=== PATIENT | male | born 1980 | race American Indian/Alaskan Native ===

== ENCOUNTER 2018-05-24 07:44 | Inpatient (IN) | payer SELFPAY ==
[2018-05-24] MEDS ORDERED: NACL 0.9% 1000 ML 1,000 ML IV ONE ×2 (07:48→11:02)
[2018-05-24] MEDS ORDERED: ZOFRAN IV ONE (07:59)
[2018-05-24] MEDS ORDERED: DILAUDID IV ONE ×3 (07:59→09:52)
--- NOTE | 2018-05-24 08:00 | Emergency Department Report ---
ED Abdominal Pain HPI - General Chief Complaint: Abdominal Pain Stated Complaint: ABD PAIN Time Seen by Provider: 05/24/18 07:58 Source: family, EMS Mode of arrival: Stretcher Limitations: No Limitations - History of Present Illness Initial Comments: Patient is a 37-year-old male presents emergency room with complaints of abdominal pain and vomiting blood. Patient states symptoms started yesterday and have been going on for about 24 hours. Patient states his symptoms are worsening. Patient states abdominal pain is 10 out of 10. Patient states the abdominal pain is in the epigastric region and nonradiating. Patient states that the pain is better with rest and worse with eating and movement and palpation. Patient states she's been vomiting bright red blood. Patient states he has vomited approximately 10 times in the last 24 hours CONTAINING blood. Patient denies fever chills. Patient denies chest pain shortness of breath. Patient denies diarrhea. Patient denies dark or bright red blood in the stool. MD Complaint: abdominal pain -: Sudden Location: epigastric Radiation: none Migration to: no migration Severity: severe Severity scale (0 -10): 10 Quality: stabbing Consistency: constant Improves With: rest Worsens With: eating, vomiting, movement Associated Symptoms: nausea, vomiting, hematemesis. denies: diarrhea, fever, chills, constipation, dysuria, hematochezia, melena, hematuria, anorexia, syncope Treatments Prior to Arrival: antacids - Related Data Allergies Allergy/AdvReac Type Severity Reaction Status Date / Time No Known Allergies Allergy Verified 05/24/18 08:04 ED Review of Systems ROS: Stated complaint: ABD PAIN Other details as noted in HPI Constitutional: denies: chills, fever Eyes: denies: eye pain, eye discharge, vision change ENT: denies: ear pain, throat pain Respiratory: denies: cough, shortness of breath, wheezing Cardiovascular: denies: chest pain, palpitations Endocrine: no symptoms reported Gastrointestinal: abdominal pain, nausea, vomiting, hematemesis. denies: diarrhea, constipation, melena, hematochezia Genitourinary: denies: urgency, dysuria Musculoskeletal: denies: back pain, joint swelling, arthralgia Skin: denies: rash, lesions Neurological: denies: headache, weakness, paresthesias Psychiatric: denies: anxiety, depression Hematological/Lymphatic: denies: easy bleeding, easy bruising ED Past Medical Hx - Past Medical History Previous Medical History?: Yes Additional medical history: stomach ulcer - Surgical History Past Surgical History?: No - Family History Family history: no significant - Social History Smoking Status: Current Every Day Smoker Substance Use Type: None ED Physical Exam - General Limitations: No Limitations General appearance: alert, in no apparent distress - Head Head exam: Present: atraumatic, normocephalic - Eye Eye exam: Present: normal appearance - ENT ENT exam: Present: mucous membranes moist - Neck Neck exam: Present: normal inspection - Respiratory Respiratory exam: Present: normal lung sounds bilaterally. Absent: respiratory distress - Cardiovascular Cardiovascular Exam: Present: regular rate, normal rhythm. Absent: systolic murmur, diastolic murmur, rubs, gallop - GI/Abdominal GI/Abdominal exam: Present: soft, tenderness (generalized tenderness to palpation), normal bowel sounds - Rectal Rectal exam: Present: deferred - Extremities Exam Extremities exam: Present: normal inspection - Back Exam Back exam: Present: normal inspection - Neurological Exam Neurological exam: Present: alert, oriented X3 - Psychiatric Psychiatric exam: Present: normal affect, normal mood - Skin Skin exam: Present: warm, dry, intact, normal color. Absent: rash ED Course Vital Signs 05/24/18 05/24/18 05/24/18 07:45 07:47 08:07 Temperature 99.3 F Pulse Rate 83 Respiratory 16 16 Rate Blood Pressure 170/90 Blood Pressure 147/126 [Left] O2 Sat by Pulse 98 99 99 Oximetry 05/24/18 08:31 Temperature Pulse Rate 87 Respiratory 19 Rate Blood Pressure Blood Pressure 138/67 [Left] O2 Sat by Pulse 99 Oximetry - Reevaluation(s) Reevaluation #1: Patient given Dilaudid and still complaining of severe pain. Patient was given another milligram of Dilaudid 05/24/18 08:16 She still complaining of pain. Patient will be given another 1 mg Dilaudid. Patient is not able to tolerate oral contrast due to nausea vomiting. 05/24/18 09:52 Discussed all results with patient. Patient admitted to the hospitalist service. Patient agrees with plan of care. Patient has required multiple doses of pain meds. We'll consult GI due to vomiting blood. 05/24/18 10:52 - Consultations Consultation #1: GI consultation and GI states they will see the patient now. 05/24/18 10:59 Consultation #2: Hospitalist consult for admission. Hospitalist to admit patient and assume care of patient. 05/24/18 11:09 ED Medical Decision Making - Lab Data Result diagrams: 05/24/18 07:52 05/24/18 07:52 - Radiology Data Radiology results: report reviewed CT ABDOMEN AND PELVIS WITH CONTRAST INDICATION: Abdominal pain, vomiting blood. COMPARISON: None similar at this institution. FINDINGS: Abdomen and pelvis CT performed following oral contrast and intravenous administration of 100 cc of Omnipaque 300. LUNG BASES: Nonspecific distal esophageal wall prominence/thickening, not excluded for gastroesophageal reflux and/or hiatal hernia, amongst others. ABDOMEN: Liver, spleen, gallbladder, pancreas, right adrenal, IVC and aorta within normal limits. Right hepatic lobe 17 cm in mid clavicular length. Approximately 0.8 cm hypodense nodular prominence along the medial limb of the left adrenal, axial series 2, image 35, statistically an adenoma. Few subcentimeter mesenteric and retroperitoneal lymph nodes. No ascites. Opacified GI tract nonobstructive. Normal retrocecal appendix with its tip extending between the liver and the right kidney toward the Cotter's pouch as on axial image 60, amongst others. Kidneys nonhydronephrotic bilaterally, though evaluation for few nonobstructing calculi, if present, limited due to presence of contrast. A 0.8 cm left lower renal cortical hypodensity/cyst as on axial image 72. PELVIS: Grossly unremarkable urinary bladder, seminal vesicles, prostate and rectosigmoid. No free fluid or significant adenopathy. Few Schmorl's nodes along L4 inferior endplate measuring up to approximately 1 cm. Slight L1 inferior endplate degenerative irregularity posteriorly as well. A 1.2 cm right iliac bone sclerotic focus posteriorly is nonspecific as on axial image 127, series 2. CONCLUSION: No definite acute significant CT abnormality or bowel obstruction with various other findings as distal esophageal prominence/thickening, left adrenal nodule, possible nephrolithiasis versus contrast excretion and a long, normal retrocecal appendix, amongst others, as detailed above. Please correlate. - Medical Decision Making Patient is a 37-year-old male presents to emergency room with complaints of vomiting blood and abdominal pain. Patient's labs unremarkable except for incidental left gassy doses which on repeat came back to normal. Patient given multiple doses of pain medications. Patient admitted to the hospitalist service for further evaluation and treatment. Patient be admitted for intractable abdominal pain and nausea. GI consult for further evaluation and treatment. Patient agreeable to plan of care. - Differential Diagnosis abdominal pain. GI bleed. PUD. Critical Care Time: Yes Critical care attestation.: If time is entered above; I have spent that time in minutes in the direct care of this critically ill patient, excluding procedure time. Critical Care Time: 55 minutes ED Disposition Clinical Impression: Intractable abdominal pain Vomiting blood Qualifiers: Nausea presence: with nausea Qualified Code(s): K92.0 - Hematemesis Abdominal pain Qualifiers: Abdominal location: epigastric Qualified Code(s): R10.13 - Epigastric pain Intractable nausea and vomiting Qualifiers: Vomiting type: unspecified Qualified Code(s): R11.2 - Nausea with vomiting, unspecified Disposition: 09 OP ADMIT IP TO THIS HOSP Is pt being admited?: Yes Does the pt Need Aspirin: No Condition: Critical Time of Disposition: 11:02
[2018-05-24 08:03] LABS: Basophils # (Auto) 0.1 K/mm3 (0.0-0.1); Basophils % (Auto) 0.6 % (0.0-1.8); Eosinophils % (Auto) 0.1 % (0.0-4.3); Hematocrit 39.7 % (35.5-45.6); Hemoglobin 13.2 gm/dl (11.8-15.2); Lymphocytes % (Auto) 8.4 % (13.4-35.0); Mean Corpuscular HGB Conc 33 % (32-34); Mean Corpuscular Volume 93 fl (84-94); Monocytes # (Auto) 0.5 K/mm3 (0.0-0.8); Monocytes % (Auto) 4.4 % (0.0-7.3); Platelet Count 264 K/mm3 (140-440); Red Blood Count 4.26 M/mm3 (3.65-5.03); Red Cell Distribution Width 14.2 % (13.2-15.2)
[2018-05-24 08:18] LABS: Alanine Aminotransferase 22 units/L (7-56); Albumin 4.7 g/dL (3.9-5); BUN/Creatinine Ratio 17; Blood Urea Nitrogen 19 mg/dL (9-20); Calcium 9.5 mg/dL (8.4-10.2); Hemolysis Index 14
--- NOTE | 2018-05-24 10:46 | Cat Scan Report ---
CT ABDOMEN AND PELVIS WITH CONTRAST INDICATION: Abdominal pain, vomiting blood. COMPARISON: None similar at this institution. FINDINGS: Abdomen and pelvis CT performed following oral contrast and intravenous administration of 100 cc of Omnipaque 300. LUNG BASES: Nonspecific distal esophageal wall prominence/thickening, not excluded for gastroesophageal reflux and/or hiatal hernia, amongst others. ABDOMEN: Liver, spleen, gallbladder, pancreas, right adrenal, IVC and aorta within normal limits. Right hepatic lobe 17 cm in mid clavicular length. Approximately 0.8 cm hypodense nodular prominence along the medial limb of the left adrenal, axial series 2, image 35, statistically an adenoma. Few subcentimeter mesenteric and retroperitoneal lymph nodes. No ascites. Opacified GI tract nonobstructive. Normal retrocecal appendix with its tip extending between the liver and the right kidney toward the Cotter's pouch as on axial image 60, amongst others. Kidneys nonhydronephrotic bilaterally, though evaluation for few nonobstructing calculi, if present, limited due to presence of contrast. A 0.8 cm left lower renal cortical hypodensity/cyst as on axial image 72. PELVIS: Grossly unremarkable urinary bladder, seminal vesicles, prostate and rectosigmoid. No free fluid or significant adenopathy. Few Schmorl's nodes along L4 inferior endplate measuring up to approximately 1 cm. Slight L1 inferior endplate degenerative irregularity posteriorly as well. A 1.2 cm right iliac bone sclerotic focus posteriorly is nonspecific as on axial image 127, series 2. CONCLUSION: No definite acute significant CT abnormality or bowel obstruction with various other findings as distal esophageal prominence/thickening, left adrenal nodule, possible nephrolithiasis versus contrast excretion and a long, normal retrocecal appendix, amongst others, as detailed above. Please correlate. Thank you for the opportunity to participate in this patient's care.
[2018-05-24] MEDS ORDERED: NACL 0.9% 1000 ML 1,000 ML ONE (11:49)
[2018-05-24] MEDS ORDERED: DILAUDID ONE (14:25)
[2018-05-24] MEDS: DILAUDID IV PRN (15:00)
--- NOTE | 2018-05-24 15:07 | Gastroenterology Consultation ---
Addendum entered and electronically signed by SIOBHAN LEE MD 05/24/18 18:10: Patient seen and examined on 05/24/2017. Agree with A/P and recommendations as stated. 37 yo male with pmh of upper GI bleed with esophagitis and duodenitis in 06/2017 presenting with abdominal pain and hematemesis. H/H stable HD stable - will plan for EGD tomorrow. Keep NPO - PPI IV - monitor H/H. Original Note: History of Present Illness - Reason for Consult Consult date: 05/24/18 UGIB Requesting physician: MAGGIE SINGER III - History of Present Illness Patient is a 37 y/o male who presented to ED with c/o abdominal pain with associated vomiting x 2 days with an episode of bloody emesis yesterday after multiple episodes of vomiting with non-bloody emesis to which GI has been consulted. Abd pain is predominantly in epigastric area. Pain is non-radiating and improved with pain medication only. Exacerbated with eating and movement. Upon admission, abd CT and labs were w/o significant findings. This afternoon patient was resting in bed in mild distress with c/o continued abd pain. Reports multiple episodes of vomiting today with clear non-bloody emesis. No melena or hematochezia. Denies fever, CP, SOB, wt loss, dysphagia, diarrhea, or constipation. No NSAID use. No PUD. Patient is previously known to our service from prior consults/hospitalizations for similar symptoms in 2014 and 06/2017 with EGD on 07/04/17 showing esophagitis and mild duodenitis with etiology thought to be possibly 2/2 hyperemesis syndrome from marijuana use to which he is still using occasionally. Past History Past Medical History: No medical history Past Surgical History: No surgical history, Other (EGD 2014 and 06/2017) Social history: smoking, other (marijuana) Family history: no significant family history Medications and Allergies Allergies Allergy/AdvReac Type Severity Reaction Status Date / Time No Known Allergies Allergy Verified 05/24/18 08:04 Home Medications Medication Instructions Recorded Confirmed Last Taken Type No Known Home Medications [No 05/24/18 05/24/18 Unknown History Reported Home Medications] Active Meds: Active Medications Hydromorphone HCl (Dilaudid) 0.5 mg IV Q3H PRN PRN Reason: Pain , Severe (7-10) Last Admin: 05/24/18 15:00 Dose: 0.5 mg Documented by: medications reviewed/updated as required Review of Systems - Review of Systems All systems: negative Gastrointestinal: abdominal pain, nausea, vomiting, hematemesis Exam - Constitutional Vital Signs: Temp Pulse Resp BP Pulse Ox 99.3 F 87 19 138/67 99 05/24/18 07:47 05/24/18 08:31 05/24/18 08:31 05/24/18 08:31 05/24/18 08:31 General appearance: mild distress - Respiratory Respiratory: bilateral: CTA - Cardiovascular Rhythm: regular Heart Sounds: Present: S1 & S2 - Gastrointestinal General gastrointestinal: Present: soft, tender (slight TTP in epigastric area), non-distended, normal bowel sounds - Neurologic Neurological: alert and oriented x3 - Labs CBC & Chem 7: 05/24/18 07:52 05/24/18 07:52 Lab Results: Laboratory Results - last 24 hr 05/24/18 05/24/18 05/24/18 07:52 07:52 07:52 WBC 11.7 H RBC 4.26 Hgb 13.2 Hct 39.7 MCV 93 MCH 31 MCHC 33 RDW 14.2 Plt Count 264 Lymph % (Auto) 8.4 L [place] % (Auto) 4.4 Eos % (Auto) 0.1 Baso % (Auto) 0.6 Lymph # 1.0 L [place] # 0.5 Eos # 0.0 Baso # 0.1 Seg Neutrophils % 86.5 H Seg Neutrophils # 10.1 H Sodium 141 Potassium 4.2 Chloride 101.8 Carbon Dioxide 22 Anion Gap 21 BUN 19 Creatinine 1.1 Estimated GFR > 60 BUN/Creatinine Ratio 17 Glucose 132 H Lactic Acid Calcium 9.5 Total Bilirubin 0.60 AST 33 ALT 22 Alkaline Phosphatase 61 Total Protein 7.3 Albumin 4.7 Albumin/Globulin Ratio 1.8 Lipase 12 L 05/24/18 05/24/18 08:02 09:12 WBC RBC Hgb Hct MCV MCH MCHC RDW Plt Count Lymph % (Auto) [place] % (Auto) Eos % (Auto) Baso % (Auto) Lymph # [place] # Eos # Baso # Seg Neutrophils % Seg Neutrophils # Sodium Potassium Chloride Carbon Dioxide Anion Gap BUN Creatinine Estimated GFR BUN/Creatinine Ratio Glucose Lactic Acid 2.70 H* 1.20 Calcium Total Bilirubin AST ALT Alkaline Phosphatase Total Protein Albumin Albumin/Globulin Ratio Lipase Assessment and Plan 1.epigastic pain 2.N/V 3.hematemesis -H/H WNL (13.2/39.7) -continue to monitor H/H and transfuse as needed -LFTs and lipase WNL -abd CT w/o acute findings -patient with acute onset of abd pain and N/V x 2 days with 1 episode of hematemesis yesterday after multiple episodes of vomiting with non-bloody emesis (M-W tear vs esophagitis vs other?). No active signs of bleeding today. No melena or hematochezia. Patient with multiple past episodes of similar symptoms with prior workup unremarkable (possibly 2/2 hyperemesis syndrome from marijuana use?) -last EGD 07/04/17 showed esophagitis and mild duodenitis (no ulcer) -etiology unclear -will schedule for repeat EGD in am for further evaluation -abd U/S -start on PPI -Keep NPO for now -continue to trend labs and supportive care -marijuana cessation discussed with patient -will follow
[2018-05-24] MEDS: PROTONIX IV SCH ×2 (17:16→22:15)
--- NOTE | 2018-05-24 20:24 | History and Physical Report ---
History of Present Illness Date of examination: 05/24/18 Date of admission: 05/24/18 11:15 Chief complaint: Vomiting and hematemesis History of present illness: 37-year-old -[place] male with history of peptic ulcer disease comes in for abdominal pain and vomiting blood which started yesterday. Patient says that he vomited about 10 times since yesterday. It is suellen blood sometimes and sometimes dark. Patient also has abdominal pain which is sharp and cramping in nature. Intensity is 10 over 10. Food exacerbates the pain. No diarrhea Past Medical History Previous Medical History?: Yes Additional medical history: stomach ulcer Surgical History Past Surgical History?: No Family History Family history: no significant Social History Smoking Status: Current Every Day Smoker Substance Use Type: None Review of Systems ROS: Stated complaint: ABD PAIN Other details as noted in HPI Constitutional: denies: chills, fever Eyes: denies: eye pain, eye discharge, vision change ENT: denies: ear pain, throat pain Respiratory: denies: cough, shortness of breath, wheezing Cardiovascular: denies: chest pain, palpitations Endocrine: no symptoms reported Gastrointestinal: abdominal pain, nausea, vomiting, hematemesis. denies: diarrhea, constipation, melena, hematochezia Genitourinary: denies: urgency, dysuria Musculoskeletal: denies: back pain, joint swelling, arthralgia Skin: denies: rash, lesions Neurological: denies: headache, weakness, paresthesias Psychiatric: denies: anxiety, depression Hematological/Lymphatic: denies: easy bleeding, easy bruising Past History Past Medical History: No medical history Past Surgical History: No surgical history, Other (EGD 2014 and 06/2017) Social history: smoking, other (marijuana) Family history: no significant family history Medications and Allergies Allergies Allergy/AdvReac Type Severity Reaction Status Date / Time No Known Allergies Allergy Verified 05/24/18 08:04 Home Medications Medication Instructions Recorded Confirmed Last Taken Type No Known Home Medications [No 05/24/18 05/24/18 Unknown History Reported Home Medications] Active Meds: Active Medications Hydromorphone HCl (Dilaudid) 0.5 mg IV Q3H PRN PRN Reason: Pain , Severe (7-10) Last Admin: 05/24/18 15:00 Dose: 0.5 mg Documented by: Pantoprazole Sodium (Protonix) 40 mg IV BID [facility] Last Admin: 05/24/18 17:16 Dose: 40 mg Documented by: Exam - Physical Exam Narrative exam: Patient lying in bed in no distress - Constitutional Vitals: Temp Pulse Resp BP Pulse Ox 99.3 F 103 H 21 109/57 99 05/24/18 07:47 05/24/18 09:51 05/24/18 09:51 05/24/18 09:51 05/24/18 09:51 General appearance: Present: no acute distress, well-nourished - EENT Eyes: Present: PERRL ENT: hearing intact, clear oral mucosa - Neck Neck: Present: supple, normal ROM - Respiratory Respiratory effort: normal Respiratory: bilateral: CTA - Cardiovascular Heart rate: 80 Rhythm: regular Heart Sounds: Present: S1 & S2. Absent: rub, click - Extremities Extremities: no ischemia, pulses intact, pulses symmetrical, No edema Peripheral Pulses: within normal limits - Abdominal General gastrointestinal: Present: soft, non-tender, non-distended, normal bowel sounds Male genitourinary: Present: normal - Rectal Rectal Exam: other (occult blood positive) - Integumentary Integumentary: Present: clear, warm, dry - Musculoskeletal Musculoskeletal: gait normal, strength equal bilaterally - Psychiatric Psychiatric: appropriate mood/affect, intact judgment & insight - Neurologic Neurologic: CNII-XII intact, moves all extremities Results - Labs CBC & Chem 7: 05/24/18 07:52 05/24/18 07:52 Labs: Laboratory Last Values WBC 11.7 K/mm3 (4.5-11.0) H 05/24/18 07:52 RBC 4.26 M/mm3 (3.65-5.03) 05/24/18 07:52 Hgb 13.2 gm/dl (11.8-15.2) 05/24/18 07:52 Hct 39.7 % (35.5-45.6) 05/24/18 07:52 MCV 93 fl (84-94) 05/24/18 07:52 MCH 31 pg (28-32) 05/24/18 07:52 MCHC 33 % (32-34) 05/24/18 07:52 RDW 14.2 % (13.2-15.2) 05/24/18 07:52 Plt Count 264 K/mm3 (140-440) 05/24/18 07:52 Lymph % (Auto) 8.4 % (13.4-35.0) L 05/24/18 07:52 [place] % (Auto) 4.4 % (0.0-7.3) 05/24/18 07:52 Eos % (Auto) 0.1 % (0.0-4.3) 05/24/18 07:52 Baso % (Auto) 0.6 % (0.0-1.8) 05/24/18 07:52 Lymph # 1.0 K/mm3 (1.2-5.4) L 05/24/18 07:52 [place] # 0.5 K/mm3 (0.0-0.8) 05/24/18 07:52 Eos # 0.0 K/mm3 (0.0-0.4) 05/24/18 07:52 Baso # 0.1 K/mm3 (0.0-0.1) 05/24/18 07:52 Seg Neutrophils % 86.5 % (40.0-70.0) H 05/24/18 07:52 Seg Neutrophils # 10.1 K/mm3 (1.8-7.7) H 05/24/18 07:52 Sodium 141 mmol/L (137-145) 05/24/18 07:52 Potassium 4.2 mmol/L (3.6-5.0) 05/24/18 07:52 Chloride 101.8 mmol/L (98-107) 05/24/18 07:52 Carbon Dioxide 22 mmol/L (22-30) 05/24/18 07:52 Anion Gap 21 mmol/L 05/24/18 07:52 BUN 19 mg/dL (9-20) 05/24/18 07:52 Creatinine 1.1 mg/dL (0.8-1.5) 05/24/18 07:52 Estimated GFR > 60 ml/min 05/24/18 07:52 BUN/Creatinine Ratio 17 % 05/24/18 07:52 Glucose 132 mg/dL (75-100) H 05/24/18 07:52 Lactic Acid 1.20 mmol/L (0.7-2.0) 05/24/18 09:12 Calcium 9.5 mg/dL (8.4-10.2) 05/24/18 07:52 Total Bilirubin 0.60 mg/dL (0.1-1.2) 05/24/18 07:52 AST 33 units/L (5-40) 05/24/18 07:52 ALT 22 units/L (7-56) 05/24/18 07:52 Alkaline Phosphatase 61 units/L (35-129) 05/24/18 07:52 Total Protein 7.3 g/dL (6.3-8.2) 05/24/18 07:52 Albumin 4.7 g/dL (3.9-5) 05/24/18 07:52 Albumin/Globulin Ratio 1.8 % 05/24/18 07:52 Lipase 12 units/L (13-60) L 05/24/18 07:52 Short CBC 05/24/18 Range/Units 07:52 WBC 11.7 H (4.5-11.0) K/mm3 Hgb 13.2 (11.8-15.2) gm/dl Hct 39.7 (35.5-45.6) % Plt Count 264 (140-440) K/mm3 BMP 05/24/18 07:52 Sodium 141 Potassium 4.2 Chloride 101.8 Carbon Dioxide 22 BUN 19 Creatinine 1.1 Glucose 132 H Calcium 9.5 Liver Function 05/24/18 Range/Units 07:52 Total Bilirubin 0.60 (0.1-1.2) mg/dL AST 33 (5-40) units/L ALT 22 (7-56) units/L Alkaline Phosphatase 61 (35-129) units/L Albumin 4.7 (3.9-5) g/dL Assessment and Plan Advance Directives: Yes (full code) VTE prophylaxis?: Mechanical Plan of care discussed with patient/family: Yes - Patient Problems (1) Upper GI bleed Current Visit: Yes Status: Acute Plan to address problem: Patient initiated on IV Protonix drip GI consult requested Possible EGD IV fluids (2) Peptic ulcer disease Current Visit: Yes Status: Chronic Plan to address problem: Continue PPIs (3) Acute dehydration Current Visit: Yes Status: Acute Plan to address problem: IV fluids for now (4) DVT prophylaxis Current Visit: Yes Status: Acute Plan to address problem: SCDs and GI prophylaxis
[2018-05-24] MEDS ORDERED: SODIUM CHLORIDE FLUSH SYRINGE 10 ML IV PRN (20:42)
[2018-05-24] MEDS ORDERED: MORPHINE IV PRN (20:42)
[2018-05-24] MEDS ORDERED: TYLENOL PO PRN (20:42)
[2018-05-24] MEDS ORDERED: NACL 0.9% 1000 ML 1,000 ML IV SCH (21:00)
[2018-05-24 21:36] LABS: Hematocrit 38.5 % (35.5-45.6); Hemoglobin 13.1 gm/dl (11.8-15.2)
[2018-05-24] MEDS: SODIUM CHLORIDE FLUSH SYRINGE 10 ML IV SCH (22:15)
[2018-05-25 06:38] LABS: Basophils % (Auto) 0.3 % (0.0-1.8); Eosinophils % (Auto) 0.1 % (0.0-4.3); Hemoglobin 12.8 gm/dl (11.8-15.2); Lymphocytes # (Auto) 1.5 K/mm3 (1.2-5.4); Lymphocytes % (Auto) 24.3 % (13.4-35.0); Mean Corpuscular HGB Conc 34 % (32-34); Mean Corpuscular Volume 94 fl (84-94); Monocytes # (Auto) 0.6 K/mm3 (0.0-0.8); Monocytes % (Auto) 9.8 % (0.0-7.3); Platelet Count 222 K/mm3 (140-440); Red Blood Count 4.05 M/mm3 (3.65-5.03); Red Cell Distribution Width 14.3 % (13.2-15.2)
[2018-05-25 06:56] LABS: Alanine Aminotransferase 22 units/L (7-56); Albumin 3.7 g/dL (3.9-5); BUN/Creatinine Ratio 15; Blood Urea Nitrogen 16 mg/dL (9-20); Calcium 8.5 mg/dL (8.4-10.2); Hemolysis Index 6
[2018-05-25] MEDS ORDERED: NACL 0.9% 1000 ML 1,000 ML IV SCH (11:00)
--- NOTE | 2018-05-25 11:25 | Anesthesia Day of Surgery ---
Anesthesia Day of Surgery - Day of Surgery Patient Examined: Yes Patient H&P Reviewed: Yes Patient is NPO: Yes
--- NOTE | 2018-05-25 11:26 | Anesthesia Consultation ---
Anesthesia Consult and Med Hx Date of service: 05/25/18 - Airway Anesthetic Teeth Evaluation: Poor ROM Head & Neck: Adequate Mental/Hyoid Distance: Adequate Mallampati Class: Class III Intubation Access Assessment: Possibly Difficult - Pre-Operative Health Status ASA Pre-Surgery Classification: ASA2 Proposed Anesthetic Plan: MAC - Pulmonary Hx Smoking: Yes (marijuana) Hx Asthma: No COPD: No Hx Pneumonia: No - Central Nervous System Hx Psychiatric Problems: No - Gastrointestinal Hx Ulcer: Yes Hx Gastroesophageal Reflux Disease: Yes - Endocrine Hx End Stage Renal Disease: No
[2018-05-25] MEDS ORDERED: WATER FOR IRRIG STERILE IR ONE (11:29)
[2018-05-25] MEDS ORDERED: DIPRIVAN 10 MG/ML IV ONE (11:30)
[2018-05-25] MEDS: ZOFRAN IV PRN ×2 (12:05→20:14)
--- NOTE | 2018-05-25 12:08 | Operative Report ---
Operative Report Operative Report: Esophagogastroduodenoscopy Procedure Note Date of procedure: 05/25/2018 Endoscopist: Fred Che Pre-op diagnosis: UGI bleed, hematemesis Post-op diagnosis: moderate severe esophagitis, gastritis Anesthesia: MAC Complications: No immediate complications Estimated blood loss: minimal Procedure: After consent was obtained, the patient was placed in the left lateral decubitus position. The fujinon endoscope was inserted into the patient's mouth under direct vision, and advanced into the 2nd portion of the duodenum without difficulty. The patient tolerated the procedure well. The views of the mucosa were good. Patient's vital signs were monitored continuously throughout the procedure. Findings: There was moderately severe esophagitis (grade B) in the mid and distal esophagus with ulcerations without active bleeding. There was severely erythematous mucosa in the antrum and incisura. Biopsies were obtained. Retroflexion view showed normal cardia and fundus. The duodenum appeared normal in the bulb and 2nd part. Impression: 1. Moderately severe mid and distal esophagitis without active bleeding. 2. Antral gastritis. Biopsies obtained. Recommendations: 1. Monitor H/H and for signs of recurrent bleeding. If H/H stable and no recurrent bleeding, ok for discharge per GI standpoint. 2. Can switch PPI to PO bid. 3. Add carafate liquids 4. Follow up in outpatient GI clinic 2-3 weeks post discharge. 5. Will sign off at this time. Please call with questions.
[2018-05-25] MEDS: DILAUDID IV PRN (12:12)
[2018-05-25] MEDS ORDERED: SUBLIMAZE ONE (12:24)
[2018-05-25] MEDS: PROTONIX IV SCH (13:19)
[2018-05-25] MEDS ORDERED: MORPHINE IV PRN (13:31)
[2018-05-25] MEDS ORDERED: PERCOCET 5/325 PO PRN (14:28)
--- NOTE | 2018-05-25 14:29 | Progress Note ---
Assessment and Plan Assessment and plan: Upper GI bleed - H&H stable - GI consulted and did EGD which showed erosive gastritis, biopsy was taken - Continue PPI - Start him on regular diet Activity prophylaxis -SCDs Disposition - We'll discharge him tomorrow no further bleeding History Interval history: Patient was seen and evaluated this morning, patient have any bloody vomiting today. Hospitalist Physical - Physical exam Narrative exam: Not in cardiopulmonary distress. The patient appeared well nourished and normally developed. Vital signs as documented. Head exam is unremarkable. No scleral icterus . Neck is without jugular venous distension, thyromegaly, or carotid bruits. Lungs are clear to auscultation. Cardiac exam reveals regular rate and Rhythm. Abdominal exam reveals normal bowel sounds. Extremities are nonedematous and both femoral and pedal pulses are normal. 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 No focal weakness. - Constitutional Vitals: Temp Pulse Resp BP Pulse Ox 98.8 F 84 15 142/74 97 05/25/18 13:27 05/25/18 13:27 05/25/18 13:27 05/25/18 13:27 05/25/18 13:27 General appearance: Present: no acute distress, well-nourished Results - Labs CBC & Chem 7: 05/25/18 05:55 05/25/18 05:55 Labs: Laboratory Last Values WBC 6.0 K/mm3 (4.5-11.0) 05/25/18 05:55 RBC 4.05 M/mm3 (3.65-5.03) 05/25/18 05:55 Hgb 12.8 gm/dl (11.8-15.2) 05/25/18 05:55 Hct 38.0 % (35.5-45.6) 05/25/18 05:55 MCV 94 fl (84-94) 05/25/18 05:55 MCH 32 pg (28-32) 05/25/18 05:55 MCHC 34 % (32-34) 05/25/18 05:55 RDW 14.3 % (13.2-15.2) 05/25/18 05:55 Plt Count 222 K/mm3 (140-440) 05/25/18 05:55 Lymph % (Auto) 24.3 % (13.4-35.0) 05/25/18 05:55 [place]idan % (Auto) 9.8 % (0.0-7.3) H 05/25/18 05:55 Eos % (Auto) 0.1 % (0.0-4.3) 05/25/18 05:55 Baso % (Auto) 0.3 % (0.0-1.8) 05/25/18 05:55 Lymph # 1.5 K/mm3 (1.2-5.4) 05/25/18 05:55 Sheridan # 0.6 K/mm3 (0.0-0.8) 05/25/18 05:55 Eos # 0.0 K/mm3 (0.0-0.4) 05/25/18 05:55 Baso # 0.0 K/mm3 (0.0-0.1) 05/25/18 05:55 Seg Neutrophils % 65.5 % (40.0-70.0) 05/25/18 05:55 Seg Neutrophils # 3.9 K/mm3 (1.8-7.7) 05/25/18 05:55 Sodium 137 mmol/L (137-145) 05/25/18 05:55 Potassium 3.4 mmol/L (3.6-5.0) L 05/25/18 05:55 Chloride 100.2 mmol/L (98-107) 05/25/18 05:55 Carbon Dioxide 26 mmol/L (22-30) 05/25/18 05:55 Anion Gap 14 mmol/L 05/25/18 05:55 BUN 16 mg/dL (9-20) 05/25/18 05:55 Creatinine 1.1 mg/dL (0.8-1.5) 05/25/18 05:55 Estimated GFR > 60 ml/min 05/25/18 05:55 BUN/Creatinine Ratio 15 % 05/25/18 05:55 Glucose 100 mg/dL (75-100) 05/25/18 05:55 Lactic Acid 1.20 mmol/L (0.7-2.0) 05/24/18 09:12 Calcium 8.5 mg/dL (8.4-10.2) 05/25/18 05:55 Total Bilirubin 0.50 mg/dL (0.1-1.2) 05/25/18 05:55 AST 39 units/L (5-40) 05/25/18 05:55 ALT 22 units/L (7-56) 05/25/18 05:55 Alkaline Phosphatase 50 units/L (35-129) 05/25/18 05:55 Total Protein 5.9 g/dL (6.3-8.2) L 05/25/18 05:55 Albumin 3.7 g/dL (3.9-5) L 05/25/18 05:55 Albumin/Globulin Ratio 1.7 % 05/25/18 05:55 Lipase 12 units/L (13-60) L 05/24/18 07:52
--- NOTE | 2018-05-25 14:44 | Ultrasound Report ---
ULTRASOUND ABDOMEN COMPLETE: TECHNIQUE: Transabdominal ultrasound with color Doppler interrogation. HISTORY: Abdominal pain and, nausea and vomiting. COMPARISON: none. FINDINGS: LIVER: Normal. BILIARY SYSTEM: Normal. PANCREAS: Normal. SPLEEN: Normal. KIDNEYS: Normal. AORTA/IVC: Normal. ASCITES: None. IMPRESSION: Unremarkable exam.
[2018-05-25] MEDS: CARAFATE PO SCH ×2 (15:52→22:52)
[2018-05-25 17:27] LABS: Hematocrit 39.9 % (35.5-45.6); Hemoglobin 13.5 gm/dl (11.8-15.2)
[2018-05-25] MEDS ORDERED: DILAUDID IV PRN (19:47)
[2018-05-25] MEDS: PROTONIX PO SCH (22:52)
[2018-05-25] MEDS: SODIUM CHLORIDE FLUSH SYRINGE 10 ML IV SCH (22:54)
[2018-05-26 06:08] LABS: Bilirubin,Urine NEG (Negative); Blood,Urine SM (Negative); Color,Urine Yellow (Yellow); Mucus,Urine 1+ /HPF; Protein,Urine <15 mg/dL mg/dL (Negative)
[2018-05-26 06:15] LABS: Hematocrit 38.1 % (35.5-45.6); Hemoglobin 13.2 gm/dl (11.8-15.2)
[2018-05-26 06:16] LABS: Amphetamine Screen,Urine PRESUMPTIVE NEGATIVE; Benzodiazepines Screen,Urine PRESUMPTIVE NEGATIVE; Cocaine Screen,Urine PRESUMPTIVE NEGATIVE; Methadone Screen,Urine PRESUMPTIVE NEGATIVE; Opiate Screen,Urine PRESUMPTIVE NEGATIVE
[2018-05-26 06:18] VITALS: BP 107/53
[2018-05-26 06:28] LABS: Cannabinoid Screen,Urine PRESUMPTIVE POSITIVE
[2018-05-26] MEDS: CARAFATE PO SCH ×2 (06:54→13:19)
--- NOTE | 2018-05-26 08:41 | Discharge Summary ---
Providers - Providers Date of Admission: 05/24/18 11:15 Attending physician: JUDITH MORALES MD 05/24/18 10:59 Consult to Physician [CONS] Routine Comment: Consulting Provider: SIOBHAN LEE Physician Instructions: Reason For Exam: gi bleed. 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 Patient has been using marijuana and his symptoms is likely due to hyperemesis due to marijuana abuse. Patient admitted and treated with IV Protonix, EGD was done and showed esophagitis, duodnitis was no active bleeding. H&H was stable. Patient's symptoms resolved. Patient counseled about cessation of marijuana. Patient is hemodynamically stable. Patient discharged with by mouth Protonix and sucralfate. Patient scheduled to see GI with in 2-3 weeks. Disposition: TO HOME OR SELFCARE Time spent for discharge: 32 minutes - Discharge Diagnoses (1) Esophagitis Status: Acute (2) Abdominal pain Status: Acute Qualifiers: Abdominal location: epigastric Qualified Code(s): R10.13 - Epigastric pain (3) Intractable nausea and vomiting Status: Acute Qualifiers: Vomiting type: unspecified Qualified Code(s): R11.2 - Nausea with vomiting, unspecified (4) Upper GI bleed Status: Acute Core Measure Documentation - Palliative Care Palliative Care/ Comfort Measures: Not Applicable - Core Measures Any of the following diagnoses?: none Exam - Physical Exam Narrative exam: Not in cardiopulmonary distress. The patient appeared well nourished and normally developed. Vital signs as documented. Head exam is unremarkable. No scleral icterus . Neck is without jugular venous distension, thyromegaly, or carotid bruits. Lungs are clear to auscultation. Cardiac exam reveals regular rate and Rhythm. Abdominal exam reveals normal bowel sounds. Extremities are nonedematous and both femoral and pedal pulses are normal. 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 No focal weakness. - Constitutional Vitals: Temp Pulse Resp BP Pulse Ox 98.7 F 60 20 107/53 97 05/26/18 05:25 01/18/19 05:25 05/26/18 05:25 05/26/18 05:25 05/26/18 05:25 Plan Activity: no restrictions Weight Bearing Status: Full Weight Bearing Diet: advance as tolerated Additional Instructions: Follow at [facility] in 1-2 weeks if no established PCP. Follow up with: PRIMARY MD HECTOR [Primary Care Provider] - 3-5 Days MIN,SIOBHAN LUIS MD [Staff Physician] - 14 Days Prescriptions: Pantoprazole [Protonix TAB] 40 mg PO BID #28 tablet Sucralfate [Carafate] 1 gm PO ACHS #30 [email or web address]
[2018-05-26] MEDS: PROTONIX PO SCH (13:19)
[2018-05-26] MEDS: SODIUM CHLORIDE FLUSH SYRINGE 10 ML IV SCH (13:58)
== END 2018-05-26 14:25 | disposition home or self-care (01) | DRG 378 ==
LOC: ED 07:44 → 3A 11:15
PROVIDERS: ADMIT Internal Medicine; ATTEND Internal Medicine
PROC: 0DB78ZX Excision of Stomach, Pylorus, Via Natural or Artificial Opening Endoscopic, Diagnostic (ICD-10-PCS; principal; 2018-05-25)
DX: K29.71 Gastritis, unspecified, with bleeding (principal); K22.10 Ulcer of esophagus without bleeding; F17.210 Nicotine dependence, cigarettes, uncomplicated; R11.2 Nausea with vomiting, unspecified; E86.0 Dehydration; K21.0 Gastro-esophageal reflux disease with esophagitis; F12.10 Cannabis abuse, uncomplicated; K29.80 Duodenitis without bleeding; K27.9 Peptic ulcer, site unspecified, unspecified as acute or chronic, without hemorrhage or perforation
CPT/HCPCS: 36415; 74177; 76700; 80053; 80307; 81001; 82140; 83690; 85014; 85018; 85025; 88305; 88342; 96361; 96374; 96375; 96376; G0378; C9113; J1170; J2270; J2405; J2704; J3010; J7030; Q9967